=== PATIENT | female | born 1990 | race Caucasian/White ===

== ENCOUNTER 2019-02-04 02:24 | Inpatient (IN) | payer MEDICAID ==
[~2019-02-04] VITALS: Ht 172.7 cm; Wt 77.0 kg
[2019-02-04] MEDS ORDERED: LACTATED RINGER'S 1,000 ML IV SCH (02:36)
[2019-02-04] MEDS ORDERED: FER325 PO (02:39)
[2019-02-04] MEDS ORDERED: PREN-93 PO (02:39)
[2019-02-04 02:40] VITALS: Ht 172.7 cm; Wt 77.0 kg
--- NOTE | 2019-02-04 02:45 | TRIAGE ---
OB Triage Datetime Report Generated by CPN: 02/04/2019 02:45 Datetime: 02/04/2019 02:41 Time of Arrival: 02/04/2019 02:18 EGA: 39.2 Arrived By: Wheelchair Arrived From: Home Chief Complaint: CONTRACTIONS Movement: Present Contractions: Regular Time Contractions Began: 02/03/2019 22:00 Contractions: Q2MIN- PER PT Rupture of Membranes: Denies Vaginal Bleeding: None Vaginal Discharge: Denies Recent Sexual Intercouse: Denies Abdominal Trauma: Not Applicable Patient Complaints: Contractions Time Provider Notified: 02/04/2019 02:39 Provider Notified: HADADIAN Initial Plan: CEFEMILY Nazario
[2019-02-04] MEDS ORDERED: OXYTOCIN 30 UNITS/LR 500 ML IV SCH ×2 (03:00)
[2019-02-04] MEDS ORDERED: IBUPROFEN 600 MG TAB PO PRN (03:00)
[2019-02-04] MEDS ORDERED: LIDOCAINE 1% (MPF) 30 ML INJ INJ PRN (03:00)
[2019-02-04] MEDS ORDERED: AMPICILLIN 2 GM/NS (PMX) 100 ML IV ONE (03:00)
[2019-02-04] MEDS ORDERED: MISOPROSTOL 200 MCG TAB PR PRN ×2 (03:00→09:30)
[2019-02-04] MEDS ORDERED: BUTORPHANOL 2 MG INJ IV PRN (03:00)
[2019-02-04] MEDS ORDERED: OXYTOCIN 30 UNITS/LR 500 ML IV PRN ×2 (03:00→09:30)
[2019-02-04] MEDS ORDERED: CARBOPROST 250 MCG INJ IM PRN ×2 (03:00→09:30)
[2019-02-04] MEDS ORDERED: METHYLERGONOVINE 0.2 MG INJ IM PRN ×2 (03:00→09:30)
[2019-02-04] MEDS ORDERED: AMPICILLIN 1 GM/NS (PMX) 50 ML IV SCH (07:00)
[2019-02-04] MEDS ORDERED: MINERAL OIL LIGHT 10 ML VIAL TOP ONE (07:30)
--- NOTE | 2019-02-04 08:19 | HP ---
Date/Time of Note Date/Time of Note DATE: 02/04/19 TIME: 08:13 OB - History Hx of Present Free Text/Dictation 28 years old 2 para 1-0-0-1 with single intrauterine at 39 weeks and 2 days complaining of uterine contractions. She states good movement. She denies nausea, vomiting, shortness of breath, chest pain, headache, visual changes, vaginal bleeding or LOF. Chief Complaint: Uterine contractions Estimated Due Date: February 09, 2019 : 2 Para: 1 Spontaneous : 0 Therapeutic : 0 Care: Good Care Obstetrical Complications: None Medical Complications: None Past Family/Social History * Past Medical, Surgical, Family and Obstetric Histories reviewed from chart. Blood Type: B+ Rubella: unknown RPR/VDRL: Negative GBS Status: Negative HBsAG: Negative OB Admission Exam Vital Signs Vital Signs Blood pressure 126/71, pulse rate 68/minutes, respiratory rate 16/minutes, temperature 98.6 Physical Exam HEENT: WNL Heart: Rhythm Normal Lungs: Clear Abdomen: WNL Extremities: Normal Cervical Dilatation: 5cm Effacement: 75% Station: -2 Membranes: Intact Heart Rate: 140's Accelerations: Accelerations Present Decelerations: No Decelerations Varibility: Moderate Contractions on Admission: < 5 Minutes Apart Intensity: Firm Last 72 hours Lab Results CBC & BMP 02/04/19 02:43 OB Assessment/Plan Other plan: 28 years old 2 para 1-0-0-1 with single intrauterine at 39 weeks and 2 days in active labor -FHR: No sign of metabolic acidosis- Category I -Continuous EFM, toco -CBC, blood type and screen -Analgesia options with R/B/A discussed in detail with patient -Epidural per patient request -Please see the orders -Blood type: O+ -GBS: Negative Admission, procedures, expectations, risks and possible complications have been discussed in detail with the patient. Risk of vaginal delivery including but not limited to bleeding, infection, cervical laceration, placental retention, injury to fetus, blood transfusion, blood transfusion related infection, risk of anesthesia, adhesion, cervical laceration, episiotomy/laceration, possible delivery with risk of bleeding, infection, injury to other organs (bowel, bladder, ureter, vessels, nerves), injury to fetus, blood transfusion, blood transfusion related infection, risk of anesthesia, scar and hernia formation, needs for future , removal of uterus or any other indicated surgery discussed with the patient. She expressed understanding and repeats the risks. All of her questions were answered. She signed the informed consent. PHYSICIAN'S VERIFICATION OF INFORMED CONSENT The patient was counseled regarding the procedure, its indications, risks, potential complications and alternatives and any questions were answered. Consent was obtained. PLANNED PROCEDURE/TREATMENT: Vaginal delivery, episiotomy, repair of laceration possible delivery TONJA TRENT February 04, 2019 08:19
--- NOTE | 2019-02-04 08:25 | LDN ---
Date/Time of Note Date/Time of Note DATE: 02/04/19 TIME: 08:19 Delivery Summary 28 years old 2 para 1-0-0-1 with single intrauterine at 39 weeks and 2 days delivered a viable male over second-degree laceration. The nose and mouth suction. Rest of body delivered. The cord clamped and cut after stopping pulsation. Baby given to the nurse. Laceration repaired with 2- 0 and 3-0 Vicryl. Patient tolerated procedure well. Type of delivery 06:51 Weight 3720 g - 8 pounds 3 ounces 9 at 1 minutes and 9 at 5 minutes EBL 150 mL Amniotic fluid. Thin meconium Weeks of Gestation 39 weeks and 2 days Placenta Delivered: Spontaneously Meconium: Light Episiotomy: No Estimated blood loss: 150 Sponge & Needle done & correct: Yes All needle counts correct: Yes Any foreign bodies felt in the: No Infant Delivery Information Sex Sex: male Apgars 1 Minute: 9 5 Minute: 9 Suctioning Nose & mouth suctioned at [place]: Yes Umbilical Cord Umbilical cord with: 3 Vessels Cord presentations: no nuchal cord Cord Blood was obtained: Yes Mother & Baby Disposition Disposition Mom & Baby to Maternity; Good: Yes TONJA TRENT February 04, 2019 08:25
[2019-02-04] MEDS: LACTATED RINGER'S 1,000 ML IV* SCH ×2 (09:14→17:14)
[2019-02-04] MEDS ORDERED: WITCH HAZEL/GLYCERIN PAD PR PRN (09:30)
[2019-02-04] MEDS ORDERED: LANOLIN HPA 1 PKT TOP PRN (09:30)
[2019-02-04] MEDS ORDERED: ACETAMINOPHEN 325 MG TAB PO PRN (09:30)
[2019-02-04] MEDS ORDERED: DIPHENHYDRAMINE 50 MG INJ IV PRN (09:30)
[2019-02-04] MEDS ORDERED: OXYCODONE/ASPIRIN (4.88/325) TAB PO PRN (09:30)
[2019-02-04] MEDS ORDERED: ONDANSETRON 4 MG INJ IV PRN (09:30)
[2019-02-04] MEDS ORDERED: BENZOCAINE 20% 56 ML SPRAY TOP PRN (09:30)
[2019-02-04] MEDS ORDERED: ZOLPIDEM 5 MG TAB PO PRN (09:30)
[2019-02-04] MEDS ORDERED: DIBUCAINE 1% 30 GM OINT TOP PRN (09:30)
[2019-02-04] MEDS ORDERED: SENNA/DOCUSATE NA (8.6MG/50MG) TAB PO PRN (09:30)
[2019-02-04 09:35] VITALS: BP 124/60; PULSE 90; RESP 16
[2019-02-04] MEDS: IBUPROFEN 600 MG TAB PO SCH ×3 (11:42→23:28)
[2019-02-04] MEDS: DEXTROSE 5%-LR 1,000 ML IV SCH ×2 (11:43→17:14)
[2019-02-04 12:00] VITALS: BP 116/52; PULSE 74; RESP 16
[2019-02-04 16:04] VITALS: BP 104/57; PULSE 76; RESP 20
[2019-02-04 19:30] VITALS: BP 103/55; PULSE 83; RESP 19
[2019-02-04] MEDS: MAGNESIUM HYDROXIDE 30ML CUP PO SCH (21:24)
[2019-02-05 03:30] VITALS: BP 110/52; PULSE 87; RESP 19
[2019-02-05] MEDS: IBUPROFEN 600 MG TAB PO SCH ×4 (05:36→23:37)
[2019-02-05 08:28] VITALS: BP 113/56; PULSE 79; RESP 18
[2019-02-05] MEDS: MAGNESIUM HYDROXIDE 30ML CUP PO SCH ×2 (08:42→21:16)
--- NOTE | 2019-02-05 14:17 | PN ---
Date/Time of Note Date/Time of Note DATE: 02/05/19 TIME: 14:08 OB Subjective Subjective Subjective Breast feeding. Denies any SOB, Denies any dizziness, reports decreased vaginal bleeding. OB Objective Objective Objective GA: A&O, NAD Abdomen: soft, Fundus non tender, palpable Breast; No regimen, no evidence of masses or fissure Extremities: No calf tenderness, no click no cord palpable Laboratory Tests Test 02/05/19 06:25 02/05/19 07:02 Lab Scanned Report REFERENCE LAB White Blood Count 15.4 H Red Blood Count 4.07 L Hemoglobin 11.2 L Hematocrit 34.0 L Mean Corpuscular Volume 83.5 Mean Corpuscular Hemoglobin 27.5 L Mean Corpuscular Hemoglobin Concent 32.9 Red Cell Distribution Width 15.1 H Platelet Count 211 Mean Platelet Volume 11.7 H Immature Granulocytes % 1.800 H Neutrophils % 67.7 Lymphocytes % 23.1 Monocytes % 6.1 Eosinophils % 1.1 Basophils % 0.2 Nucleated Red Blood Cells % 0.0 Immature Granulocytes # 0.270 H Neutrophils # 10.4 H Lymphocytes # 3.6 H Monocytes # 0.9 Eosinophils # 0.2 Basophils # 0.0 Nucleated Red Blood Cells # 0.0 VS - Last 72 Hours, by Label Date Temp Pulse Resp B/P (MAP) Pulse Ox O2 O2 Flow FiO2 Time Delivery Rate 02/05/19 98.3 79 18 113/56 High Flow 08:28 (75) 02/05/19 98.0 87 19 110/52 Room Air 03:30 (71) 02/04/19 97.9 83 19 103/55 Room Air 19:30 (71) 02/04/19 98.5 76 20 104/57 16:04 (73) 02/04/19 98.1 74 16 116/52 Room Air 12:00 (73) 02/04/19 99.4 90 16 124/60 Room Air 09:35 (81) OB Assessment/Plan Other Assessment: PPD #1 Post Doing well Routine care Anticipate DC home tomorrow NATALIE CARCAMO MD February 05, 2019 14:17
[2019-02-05 15:53] VITALS: BP 130/77; PULSE 82; RESP 18
[2019-02-05 19:50] VITALS: BP 113/72; PULSE 81; RESP 18
[2019-02-06 03:50] VITALS: BP 115/64; PULSE 74; RESP 19
[2019-02-06] MEDS: IBUPROFEN 600 MG TAB PO SCH ×3 (05:33→18:00)
[2019-02-06 08:30] VITALS: BP 118/59; PULSE 83; RESP 20
[2019-02-06] MEDS ORDERED: MEASLES,MUMPS,RUBELLA VACCINE INJ SC* ONE (09:00)
[2019-02-06] MEDS ORDERED: DIPHTH/TET/ACEL PERTUSS (ADULT) 0.5 ML VIAL IM* ONE (09:00)
[2019-02-06] MEDS: MAGNESIUM HYDROXIDE 30ML CUP PO SCH (09:44)
--- NOTE | 2019-02-06 11:24 | DS ---
Date/Time of Note Date/Time of Note DATE: 02/06/19 TIME: 11:22 Obstetrical Discharge Record Final Diagnosis Final Diagnosis: Term delivered Other Final Diagnosis day #2 Status post Patient stable and afebrile Vital signs stable Hematology - 72 Hrs Test 02/04/19 02:43 02/05/19 07:02 Hematocrit 38.8 % (37.0-47.0) 34.0 % (37.0-47.0) L Hemoglobin 12.9 g/dl (12.0-16.0) 11.2 g/dl (12.0-16.0) L Mean Corpuscular 27.9 pg (29.0-33.0) L 27.5 pg (29.0-33.0) L Hemoglobin Mean Corpuscular 33.2 g/dl (32.0-37.0) 32.9 g/dl (32.0-37.0) Hemoglobin Concent Mean Corpuscular Volume 83.8 fl (82.0-101.0) 83.5 fl (82.0-101.0) Mean Platelet Volume 11.2 fl (7.4-10.4) H 11.7 fl (7.4-10.4) H Platelet Count 236 10^3/UL (140-415) 211 10^3/UL (140-415) Red Blood Count 4.63 10^6/ul (4.20-5.40) 4.07 10^6/ul (4.20-5.40) L Red Cell Distribution 14.6 % (11.5-14.5) H 15.1 % (11.5-14.5) H Width White Blood Count 13.3 10^3/ul (4.8-10.8) 15.4 10^3/ul (4.8-10.8) H H Abdomen soft, fundus firm Perineum intact Extremities nontender Assessment and plan Patient stable and doing well Plan to discharge home Patient instructed to follow-up with her own LAUNCH ENGINEER in 2 and 6 weeks Vaginal Delivery Obstetrical Delivery: Spontaneous Condition on Discharge Physical Assessment Last Vitals: VS - Last 72 Hours, by Label Date Temp Pulse Resp B/P (MAP) Pulse Ox O2 O2 Flow FiO2 Time Delivery Rate 02/06/19 98.9 83 20 118/59 Room Air 08:30 (78) 02/06/19 98.0 74 19 115/64 Room Air 03:50 (81) 02/05/19 98.3 81 18 113/72 Room Air 19:50 (86) 02/05/19 98.1 82 18 130/77 Room Air 15:53 (94) 02/05/19 98.3 79 18 113/56 High Flow 08:28 (75) 02/05/19 98.0 87 19 110/52 Room Air 03:30 (71) 02/04/19 97.9 83 19 103/55 Room Air 19:30 (71) 02/04/19 98.5 76 20 104/57 16:04 (73) 02/04/19 98.1 74 16 116/52 Room Air 12:00 (73) 02/04/19 99.4 90 16 124/60 Room Air 09:35 (81) Voiding: Yes Bowel Movement: Yes Breast: Soft, non-tender Fundus: Firm Calf Tenderness: No Patient Condition: Good Copies To: CC: TONJA TRENT BAHAREH MD February 06, 2019 11:24
[2019-02-06 16:25] VITALS: BP 116/69; PULSE 85; RESP 18
--- NOTE | 2019-02-07 19:08 | DELSUM ---
Delivery Summary A-C Datetime Report Generated by CPN: 02/07/2019 19:08 DELIVERY PERSONNEL Photo Offset Printer: Cain Stacey MATERNAL INFORMATION Delivery Anesthesia: None Medications in Delivery: 30 UNITS PITOCIN IN 500ML LR Delivery QBL (ml): 155 Placenta Cultured: No Maternal Complications: None LABOR SUMMARY EDC: 02/09/2019 00:00 No. Babies in Womb: 1 Attempted: No Labor Anesthesia: None LABOR INFORMATION Reason for Induction: Not Applicable Onset of Labor: 02/03/2019 10:00 Complete Dilatation: 02/04/2019 06:35 Oxytocin: N/A Group B Beta Strep: Negative Antibiotics # of Doses: 0 Steroids Given: None Reason Steroids Not Administered: Not Applicable MEMBRANES Membranes Rupture Method: Spontaneous Rupture of Membranes: 02/04/2019 06:33 Length of Rupture (hr): 0.30 Amniotic Fluid Color: Light Meconium Amniotic Fluid Amount: Moderate Amniotic Fluid Odor: None STAGES OF LABOR Stage 1 hr: 20 Stage 1 min: 35 Stage 2 hr: 0 Stage 2 min: 16 Stage 3 hr: 0 Stage 3 min: 4 Total Time in Labor hr: 20 Total Time in Labor min: 55 VAGINAL DELIVERY Episiotomy: None Laceration Extension: Second Degree Laceration Type: Perineal; Vaginal Laceration Repair: Yes Initial Vag Sponge Count: 10 Final Vag Sponge Count: 10 Initial Vag Sharps Count: 1 Final Vag Sharps Count: 3 Sponge Count Correct: Yes; Vaginal Sweep Performed Sharps Count Correct: Yes BABY A INFORMATION Infant Delivery Date/Time: 02/04/2019 06:51 Method of Delivery: Vaginal Born in Route : No : N/A Forceps: N/A Vacuum Extraction: N/A Shoulder Dystocia : N/A SHOULDER DYSTOCIA BABY A Delivery Date/Time: 02/04/2019 06:51 PRESENTATION/POSITION BABY A Presentation: Cephalic Cephalic Presentation: Vertex Vertex Position: Left Occipital Anterior Breech Presentation: N/A PLACENTA INFORMATION BABY A Placenta Delivery Time : 02/04/2019 06:55 Placenta Method of Delivery: Spontaneous Placenta Status: Delivered SCORES BABY A Heart Rate 1 min: >100 bpm Resp Effort 1 min: Good Cry Reflex Irritability 1 min: Cough/Sneeze/Pulls Away Muscle Tone 1 min: Active Motion Color 1 min: Body [place], Extremit Blue Resuscitation Effort 1 min: Tactile Stimulation SCORE 1 MIN: 9 Heart Rate 5 min: >100 bpm Resp Effort 5 min: Good Cry Reflex Irritability 5 min: Cough/Sneeze/Pulls Away Muscle Tone 5 min: Active Motion Color 5 min: Body [place], Extremit Blue Resuscitation Effort 5 min: Tactile Stimulation SCORE 5 MIN: 9 INFORMATION BABY A Gestational Age at Delivery: 39.2 Gestational Status: Full Term- 39- 40.6 Weeks Infant Outcome : Liveborn Condition : Stable Infant Sex: Male IDENTIFICATION/MEDS BABY A ID Band Number: [id number] ID Band Location: Right Leg; Left Arm Sensor Applied: Yes Sensor Number: [id number] Sensor Location : Cord Clamp Vitamin K Given : Not Given Erythromycin Given: Not Given WEIGHT/LENGTH BABY A Birthweight (gm): 3720 Weight (lb): 8 Weight (oz): 3 Length (in): 19.75 Infant Length (cm): 50.17 CORD INFORMATION BABY A No. Cord Vessels: 3 Nuchal Cord : N/A Cord Blood Taken: Yes Suction: Mouth; Nose ASSESSMENT BABY A Infant Complications: Extended Bradycardi; Multiple Late Decels; Meconium Physical Findings at Delivery: Within Normal Limits Infant Respirations: Appears Normal Cartographic Engineer/ALS Called : Yes Infant Care By: MICAELA Transferred To: Remains with Mother
== END 2019-02-06 19:08 | disposition home or self-care (01) | DRG 807 ==
LOC: L-D 02:24 → OBT 02:24 → L-D 02:39 → OBT 03:24 → PP1 09:35
PROVIDERS: ADMIT Obstetrics & Gynecology; ATTEND Obstetrics & Gynecology
PROC: 10E0XZZ Delivery of Products of Conception, External Approach (ICD-10-PCS; principal; 2019-02-06)
DX: O70.1 Second degree perineal laceration during delivery (principal); Z37.0 Single live birth; Z3A.39 39 weeks gestation of pregnancy
CPT/HCPCS: 85025; 85610; 85730; 86592; 86850; 86900; 86901; 87340; 90715; 99464; G0463; J0595; J2590; J7120; J7121